=== PATIENT | female | born 1995 | race Caucasian/White ===

== ENCOUNTER 2016-09-09 18:38 | Emergency (ER) | payer BC ==
[2016-09-09 19:36] LABS: APPEARANCE HAZY (CLEAR); COLOR DK YELLOW (YELLOW)
[2016-09-09 19:37] LABS: BILIRUBIN NEGATIVE (NEGATIVE); GLUCOSE NEGATIVE (NEGATIVE); KETONE NEGATIVE (NEGATIVE); LEUKOCYTE ESTERASE TRACE (NEGATIVE); NITRITE NEGATIVE (NEGATIVE); PROTEIN TRACE mg/dL (NEGATIVE); UROBILINOGEN NORMAL (NORMAL)
[2016-09-09 19:38] LABS: BACTERIA MANY /hpf (NONE SEEN); EPITHELIAL CELLS 0-5 /hpf (0-5); MUCUS <1+ /lpf (NONE SEEN); RED CELLS - URINE OCC /hpf (0-5)
[2016-09-09 19:40] LABS: BASOPHILS 0 % (0.0-2.0); EOSINOPHILS 0.7 % (0-7); HEMATOCRIT 34.8 % (36.0-48.0); HEMOGLOBIN 11.6 g/dL (12-16); IMMATURE GRANULOCYTES 0.2 % (0-5); LYMPHOCYTES 13.8 % (15-50); MCH 30.4 pg (26.0-34.0); MCHC 33.3 g/dL (31.0-37.0); MCV 91.1 fL (80.0-100.0); MEAN PLATELET VOLUME 11.2 fL (7.4-10.4); NEUTROPHILS 82.3 % (40-80); PLATELET COUNT 199 10x3/uL (130-400); RBC 3.82 10x6/uL (4.00-5.40); RDW 12.9 % (11.5-14.5); WBC 9.8 10x3/uL (4.8-10.8)
[2016-09-09 20:00] LABS: ALBUMIN 2.8 g/dL (3.4-5.0); ALKALINE PHOSPHATASE 91 U/L (46-116); ALT (SGPT) 12 U/L (10-68); BILIRUBIN - TOTAL 0.25 mg/dL (0.2-1.3); CALC OSMOLALITY 263 mosm/kg (275-300); CALCIUM 8.8 mg/dL (8.5-10.1); CARBON DIOXIDE 26.8 mmol/L (21.0-32.0); CHLORIDE - SERUM 100 mmol/L (98-107); CREATININE - SERUM 0.8 mg/dL (0.6-1.3); GLUCOSE 89 mg/dL (74-106); POTASSIUM - SERUM 3.7 mmol/L (3.5-5.1); PROTEIN - SERUM 6.8 g/dL (6.4-8.2); SODIUM 133 mmol/L (136-145); UREA NITROGEN 10 mg/dL (7-18); eGFR NON AFRICAN AMERICAN > 90 mL/min (90-120)
== END 2016-09-09 22:34 | disposition home or self-care (01) ==
LOC: D.ER 18:38
PROVIDERS: Emergency Medicine
DX: E86.0 Dehydration (principal); E16.2 Hypoglycemia, unspecified; F98.8 Other specified behavioral and emotional disorders with onset usually occurring in childhood and adolescence

== ENCOUNTER 2016-09-16 22:02 | Outpatient (CLI) | payer BC ==
[2016-09-16 22:50] LABS: APPEARANCE HAZY (CLEAR); BILIRUBIN NEGATIVE (NEGATIVE); COLOR YELLOW (YELLOW); GLUCOSE NEGATIVE (NEGATIVE); KETONE NEGATIVE (NEGATIVE); LEUKOCYTE ESTERASE 1+ (NEGATIVE); NITRITE NEGATIVE (NEGATIVE); PROTEIN NEGATIVE (NEGATIVE); SPECIFIC GRAVITY 1.015 (1.005-1.020); UROBILINOGEN NORMAL (NORMAL)
[2016-09-16 22:51] LABS: RED CELLS - URINE 0-5 /hpf (0-5)
[2016-09-16 22:53] LABS: BACTERIA MANY /hpf (NONE SEEN); MUCUS <1+ /lpf (NONE SEEN)
== END 2016-09-16 22:58 | disposition home or self-care (01) ==
LOC: D.LD 22:02 → D.LDO 22:02
PROVIDERS: Obstetrics & Gynecology
DX: O26.853 Spotting complicating pregnancy, third trimester (principal); Z3A.35 35 weeks gestation of pregnancy

== ENCOUNTER → 2016-09-30 06:32 | Outpatient (CLI) | payer BC | LOC: D.LDO 06:32 | DX: Z34.03 Encounter for supervision of normal first pregnancy, third trimester (principal); Z3A.37 37 weeks gestation of pregnancy ==

== ENCOUNTER → 2016-10-16 07:05 | Outpatient (CLI) | payer BC | END | disposition home or self-care (01) | LOC: D.LDO 07:05 | DX: O48.0 Post-term pregnancy (principal); Z3A.40 40 weeks gestation of pregnancy ==

== ENCOUNTER → 2016-10-19 12:45 | Outpatient (CLI) | payer BC ==
[~2016-10-19 12:45] MED LIST: KEFLEX500 MG PO; PRENATAL COMPLE1 TAB PO
[2016-10-21 05:48] VITALS: BMI 44.7
== END | disposition home or self-care (01) ==
LOC: D.ER 12:45
DX: O48.0 Post-term pregnancy (principal); Z3A.40 40 weeks gestation of pregnancy

== ENCOUNTER 2016-10-21 04:51 | Inpatient (IN) | payer BC ==
[~2016-10-21] VITALS: Ht 160 cm; Wt 114.3 kg
[2016-10-21] MEDS ORDERED: KEFLEX500 MG PO (05:47)
[2016-10-21 05:48] VITALS: BP 114/63; Ht 160 cm; Wt 114.3 kg
[2016-10-21] MEDS ORDERED: PRENATAL COMPLE1 TAB PO (05:48)
[2016-10-21 07:03] LABS: HEMATOCRIT 36.1 % (36.0-48.0); HEMOGLOBIN 11.9 g/dL (12-16); MCV 90.9 fL (80.0-100.0); MEAN PLATELET VOLUME 11.5 fL (7.4-10.4); RBC 3.97 10x6/uL (4.00-5.40); RDW 12.8 % (11.5-14.5); WBC 9.1 10x3/uL (4.8-10.8)
[2016-10-21 07:11] LABS: APPEARANCE HAZY (CLEAR); BILIRUBIN NEGATIVE (NEGATIVE); COLOR DK YELLOW (YELLOW); GLUCOSE NEGATIVE (NEGATIVE); KETONE NEGATIVE (NEGATIVE); LEUKOCYTE ESTERASE 1+ (NEGATIVE); NITRITE NEGATIVE (NEGATIVE); PROTEIN NEGATIVE (NEGATIVE); SPECIFIC GRAVITY 1.025 (1.005-1.020); UROBILINOGEN NORMAL (NORMAL)
[2016-10-21 07:12] LABS: BACTERIA MODERATE /hpf (NONE SEEN); MUCUS >1+ /lpf (NONE SEEN); RED CELLS - URINE OCC /hpf (0-5)
[2016-10-22 06:14] LABS: RAPID PLASMA REAGIN Non Reactive (Non Reactive)
--- NOTE | 2016-10-22 07:45 | NUR ---
RECEIVED REPORT FROM L/D PUMPER GAUGER NURSE.
--- NOTE | 2016-10-22 08:40 | NUR ---
PATIENT GIVEN ORAL PAIN MEDICATIONS PER REQUEST FOR PELVIC AND LOWER BACK PAIN THAT SHE IS RATING AN 8. SHE STATES THAT HER BELLEDING IS LIKE THAT OF A PERIOD. SHE HAS RECENTLY BEEN UP TO THE BATHROOM AND C/O DIZZINESS WHILE UP. SHE ALSO STATES THAT SHE HAS A MILD HEADACHE. SHE UNDERSTANDS THE POSSIBILITY OF AN EPIDURAL HEADACHE. SHE STATES THAT SHE HOPES TO SLEEP IT OFF.
[2016-10-22 09:28] VITALS: BP 116/76
--- NOTE | 2016-10-22 09:52 | NUR ---
PATIENT IS RESTIN GQUIELTY ON HER RIGHT SIDE, KNEES PULLED UP AND LIGHTS OUT. SHE DID NOT TURN TO MY ENTRY, RESPIRATIONS ARE DEEP AND EVEN. DID NOT DISTURB.
--- NOTE | 2016-10-22 11:14 | NUR ---
PATIENT CALLED TO THE DESK TO REQUEST HER BABY BE DELIVERED TO HER FOR FEEDING. NURSERY NOTIFIED.
[2016-10-22 12:13] VITALS: BP 115/64
[2016-10-22 17:03] VITALS: BP 100/52
--- NOTE | 2016-10-22 19:10 | NUR ---
INFORMED BY OFF GOING DAYSHIFT RN, PT NOW REQUESTS TO HAVE BLOOD PATCH PLACED FOR SRINIVASAN S/P EPIDURAL PLACEMENT YESTERDAY. ANESTHESIA IN OR AT THIS TIME. RN SPOKE WITH ANESTHESIA, WILL PERFORM BLOOD PATCH WHEN CASE IS COMPLETE. PT NOITIFIED, POC DISCUSSED AND QUESTIONS ANSWERED.
--- NOTE | 2016-10-22 19:25 | NUR ---
RN TO PT BS FOR ASSESSMENT. PT RESTING IN BED IN LEFT LATERAL POSITION, WITH EYES CLOSED, IN NO ACUTE DISTRESS. PT AWAKENS EASILY WHEN SPOKEN TO. PT IS A 21YO G1NOW P1 WITH OF VIABLE MALE INFANT THIS MORNING @ 0452. INFANT @ 40.6WKS GESTATION. PT WITH 1ST DEGREE ML LACERATION AND REPAIR. AAOX3. HR REGULAR. LUNGS CTAB. PT C/O SRINIVAASN WITH POSITION CHANGES AND SENSITIVE TO LIGHT. S/P EVALUATION BY ANESTHESIA, WILL PERFORM BLOOD PATCH WHEN OR PROCEDURE IS COMPLETE. ABDOMEN SOFT AND NON TENDER. BS ACTIVE TIME TIMES 4. FUNDUS NOT PALPATED. LOCHIA RUBRA SCANT. PERINIUM APPEARS TO BE INTACT. PT STATES SHE HAS PASSED GAS BUT HAS NOT HAD A BM SINCE . PT DENIES DIFFICULTY VOIDED. TONY PAD AND PANTIES IN PLACE. 1+ LOWER EXTREMITY SWELLING NOTED. PT STATES SHE IS TOLERATING REGULAR DIET WELL. 18G SL IN PLACE TO RIGHT HAND. FLUSHED WITH 5 CC NS WITHOUT DIFFICULTY. NO REDNESS OR EDEMA NOTED TO SITE. PT DENIES THE NEED FOR MEDICATION AT THIS TIME. BED IN LOW POSITION, SIDE RAILS UP TIMES 2, CALL LIGHT AND PHONE IN REACH. WILL CONT TO MONITOR PT STATUS.
[2016-10-22 19:28] VITALS: BP 109/68
--- NOTE | 2016-10-22 19:40 | NUR ---
RN AND ANESTHESIA AT BS TO PERFORM BLOOD PATCH.
--- NOTE | 2016-10-22 19:45 | NUR ---
TIME OUT PERFORMED FOR BLOOD PATCH. RN REMAINS AT PT BS FOR CONT MATERNAL ASSESSMENT.
--- NOTE | 2016-10-22 19:57 | NUR ---
NORCO 5 AND IBUPROFEN PROVIED TO PT AT THIS TIME FOR C/O BACK PAIN, RATES 8/10. FRESH SPRITE PROVIDED.
--- NOTE | 2016-10-22 20:02 | NUR ---
BLOOD PATCH COMPLETE. RN REMAINED AT PT BS FOR PROCEDURE. PT TOLERATED WITHOUT DIFFICULTY. PERFORMED BY Margie HARRIS CRNA.
[2016-10-22 20:08] VITALS: BP 109/66
--- NOTE | 2016-10-22 20:34 | NUR ---
RN TO PT BS FOR REASSESSMENT. PT RESTING IN BED IN LEFT LATERAL POSITION, WITH EYES CLOSED, IN NO ACUTE DISTRESS. RESPIRATIONS EVEN AND UNLABORED. BED IN LOW POSITION, SIDE RAILS UP TIMES 2, CALL LIGHT AND PHONE IN REACH. INFANT IN NURSERY FOR OBSERVATION TO ALLOW PT TO REST. WILL CONT TO MONITOR PT STATUS.
--- NOTE | 2016-10-22 22:00 | NUR ---
RN TO PT BS FOR ROUNDS. PT RESTING IN BED IN RIGHT LATERAL POSITION, WITH EYES CLOSED, IN NO ACUTE DISTRESS. RESPIRATIONS EVEN AND UNLABORED. BED IN LOW POSITION, SIDE RAILS UP TIMES 2, CALL LIGHT AND PHONE IN REACH. INFANT REMAINS IN NURSERY FOR OBSERVATION TO ALLOW MOTHER TO REST. WILL CONT TO MONITOR PT STATUS.
--- NOTE | 2016-10-22 23:59 | NUR ---
RN TO PT BS FOR ROUNDS. PT AMBULATING IN ROOM TO BR WHEN RN ENTERS. PT DENIES ANY NEEDS AT THIS TIME. BED IN LOW POSITION, SIDE RAILS UP TIMES 2, CALL LIGHT AND PHONE IN REACH. INFANT REMAINS IN NURSERY FOR OBSERVATION TO ALLOW PT TO REST. WILL CONT TO MONITOR PT STATUS.
--- NOTE | 2016-10-23 02:19 | NUR ---
RN TO PT BS FOR ROUNDS. PT RESTING IN BED IN RIGHT LATERAL POSITION, WITH EYES CLOSED, IN NO ACUTE DISTRESS. RESPIRATIONS EVEN AND UNLABORED. BED IN LOW POSITON, SIDE RAILS UP TIMES 2, CALL LIGHT AND PHONE IN REACH. REMAINS IN NURSERY FOR OBSERVATION TO ALLOW MOTHER TO REST. WILL CONT TO MONITOR PT STATUS.
[2016-10-23 07:35] VITALS: BP 123/74
--- NOTE | 2016-10-23 07:45 | NUR ---
ASSESSMENT DONE. SITTING UP IN BED. PT QUESTIONS PLANS FOR TODAY. INFORMED THAT DR SHEN IS IN UNIT AND WILL MAKE ROUNDS. NO CO PAIN. UP AND ABOUT IN ROOM.
[2016-10-23 08:01] LABS: BASOPHILS 0.2 % (0-2); EOSINOPHILS 1.8 % (0-7); HEMATOCRIT 31.4 % (36.0-48.0); HEMOGLOBIN 10.4 g/dL (12-16); IMMATURE GRANULOCYTES 0.2 % (0-5); LYMPHOCYTES 21.7 % (15-50); MCH 30.1 pg (26.0-34.0); MCHC 33.1 g/dL (31.0-37.0); MCV 90.8 fL (80.0-100.0); MEAN PLATELET VOLUME 10.2 fL (7.4-10.4); MONOCYTES 4.7 % (2-11); NEUTROPHILS 71.4 % (40-80); PLATELET COUNT 172 10x3/uL (130-400); RBC 3.46 10x6/uL (4.00-5.40); WBC 9.5 10x3/uL (4.8-10.8)
[2016-10-23] MEDS ORDERED: HYDROCODON-ACE1 EAC7 PO (09:28)
[2016-10-23] MEDS ORDERED: MOTRIN600 MG PO (09:29)
--- NOTE | 2016-10-23 10:00 | NUR ---
SITTING UP IN BED HOLDING . INFO SHEETS ON T-DAP GIVEN TO PT - REFUSES T-DAP AT THIS TIME. DENIES NEEDS.
--- NOTE | 2016-10-23 11:31 | NUR ---
DISCHARGE INST GIVEN TO PT TO REVIEW. PT DENIES NEEDS. NO REQUESTS. INFANT NOT YET DISCHARGED.
--- NOTE | 2016-10-23 13:01 | NUR ---
SALINE LOCK REMOVED - CATH INTACT- BANDAIDE APPLIED. DISCHARGE INSTRUCTIONS VERBAL AND WRITTEN GIVEN, PT MED REC, DRUG DATA INFO SHEETS. PRESCRIPTIONS X 2. PFW AND ALL OTHER DISCHARGE INST SHEETS GIVEN. DENIES QUESTIONS. INSTRUCTED PT TO CALL WHEN READY TO DISCHARGE AND WILL TAKE TO AUTO VIA W/C WITH .
== END 2016-10-23 15:00 | disposition home or self-care (01) | DRG 774 ==
LOC: D.LD 04:51
PROVIDERS: ADMIT Obstetrics & Gynecology
PROC: 10E0XZZ Delivery of Products of Conception, External Approach (ICD-10-PCS; principal; 2016-10-22)
PROC: 3E0R3GC Introduction of Other Therapeutic Substance into Spinal Canal, Percutaneous Approach (ICD-10-PCS; 2016-10-22)
DX: O99.214 Obesity complicating childbirth (principal); O74.5 Spinal and epidural anesthesia-induced headache during labor and delivery; Z3A.40 40 weeks gestation of pregnancy; Z37.0 Single live birth